=== PATIENT | male | born 1970 | race Caucasian/White ===

== ENCOUNTER → 2020-08-04 | Outpatient (CLI) | payer OTHER ==
--- NOTE | 2020-08-04 16:13 | RAD ---
EXAM: Right knee, 3 views. HISTORY: Pain. COMPARISON: None. FINDINGS: 3 views of the right knee are obtained. There is a right knee arthroplasty in expected posi tion. There is no evidence of arthroplasty loosening. There is no fracture. There is no significant j oint effusion. There is enthesopathy along the superior patella. IMPRESSION: Right knee arthroplasty in expected position. No acute osseous finding. Electronically signed by: Daphne Cox MD (08/04/2020 4:11 PM) [facility]
== END ==
LOC: RAD 15:43
PROVIDERS: ATTEND Orthopaedic Surgery
DX: M76.51 Patellar tendinitis, right knee (principal); Z96.651 Presence of right artificial knee joint
CPT/HCPCS: 73562

== ENCOUNTER → 2020-08-16 | Outpatient (CLI) | payer OTHER ==
[2020-08-16 08:16] LABS: BASO % 1 % (0-3); EOS # 0.2 x10^3/uL (0.0-0.7); EOS % 2 % (0-3); HEMATOCRIT 43.6 % (39.0-53.0); HEMOGLOBIN 14.8 g/dL (13.0-17.5); LYMPH # 2.4 x10^3/uL (1.0-4.8); LYMPH % 32 % (24-48); MEAN CORPUSCULAR HEMOGLOBIN 29 pg (25-35); MEAN CORPUSCULAR HGB CONC 34 g/dL (31-37); MEAN CORPUSCULAR VOLUME 85 fL (79-100); MONO # 0.8 x10^3/uL (0.0-1.1); MONO % 11 % (0-9); NEUT # 4.1 x10^3uL (1.8-7.7); NEUT % 54 % (31-73); PLATELET COUNT 218 x10^3/uL (140-400); RED BLOOD COUNT 5.15 x10^6/uL (4.30-5.70); RED CELL DISTRIBUTION WIDTH 13.7 % (11.5-14.5); WHITE BLOOD COUNT 7.5 x10^3/uL (4.0-11.0)
[2020-08-16 09:40] LABS: SEDIMENTATION RATE 2 (0-15)
--- NOTE | 2020-08-16 13:09 | RAD ---
EXAM: Limited bone scintigraphy. HISTORY: Right knee pain and swelling. Arthroplasty 2.5 years ago. COMPARISON: 08/04/2020. FINDINGS: 25.3 mCi Tc-99m MDP was administered intravenously. Scintigraphic images of the knees were obtained after a delay in multiple projections. There is moderate uptake along all 3 compartments of the right total knee arthroplasty. No focal inte nse uptake suggestive of stress lesion is identified. Uptake along the medial compartment of the left knee is consistent with osteoarthritis. IMPRESSION: 1. Moderate uptake along all 3 components of the right total knee arthroplasty is mildly more than ex pected 2.5 years after placement. Correlate with other clinical data. A triple phase examination coul d more specifically assess for loosening or infection if there is persistent concern. Electronically signed by: Bill Castro MD (08/16/2020 1:06 PM) [facility]
== END ==
LOC: NM 07:43
PROVIDERS: ATTEND Orthopaedic Surgery
DX: M17.12 Unilateral primary osteoarthritis, left knee (principal); Z96.651 Presence of right artificial knee joint
CPT/HCPCS: 36415; 78300; 85025; 85651; 86140; A9503